=== PATIENT | female | born 1975 ===

== ENCOUNTER 2017-05-27 15:29 | Emergency (ER) | payer OTHER ==
[~2017-05-27] VITALS: Ht 160 cm; Wt 61.7 kg
[~2017-05-27 15:29] MED LIST: ATENOLOL25 MG PO; KETO10TA2 PO; NORFLEX100MG PO
[2017-05-27] MEDS ORDERED: TUSSIONEX PENN115 ML PO (18:50)
== END 2017-05-27 20:47 | disposition home or self-care (01) ==
LOC: ER 15:29
DX: J11.1 Influenza due to unidentified influenza virus with other respiratory manifestations (principal); R50.9 Fever, unspecified

== ENCOUNTER 2019-04-20 14:55 | Emergency (ER) | payer OTHER ==
[~2019-04-20] VITALS: Ht 160 cm; Wt 61.2 kg
[~2019-04-20 14:55] MED LIST changes: +ADVIL200 MG PO; +TUSSIONEX PENN115 ML PO
== END 2019-04-20 17:12 | disposition home or self-care (01) ==
LOC: ER 14:55
DX: S71.122A Laceration with foreign body, left thigh, initial encounter (principal); W54.0XXA Bitten by dog, initial encounter; Y93.89 Activity, other specified; Y92.89 Other specified places as the place of occurrence of the external cause; Y99.8 Other external cause status

== ENCOUNTER 2024-09-10 12:32 | Outpatient (CLI) | payer OTHER | END 2024-09-10 12:41 | disposition home or self-care (01) | LOC: RAD 12:32 | PROVIDERS: ATTEND Internal Medicine | DX: M25.579 Pain in unspecified ankle and joints of unspecified foot (principal) ==